=== PATIENT | female | born 1960 | race Caucasian/White ===

== ENCOUNTER → 2016-08-01 | Outpatient (CLI) | payer BC ==
[~2016-08-01] VITALS: Ht 174 cm; Wt 95.0 kg
[~2016-08-01] MED LIST: BELVIQ; CARDI-OMEGA1000 MG PO; PHENTERMINE15 MG; ZOLOFT; ZOLOFT 50MG50 MG PO
[2016-08-01 14:10] VITALS: BP 116/50; PULSE 76
[2016-08-01 14:36] VITALS: BP 116/50; PULSE 76
== END ==
LOC: LIGHT 06-06 12:00
DX: E78.4 Other hyperlipidemia (principal); M15.8 Other polyosteoarthritis; E66.09 Other obesity due to excess calories; Z68.31 Body mass index [BMI] 31.0-31.9, adult

== ENCOUNTER → 2017-07-09 | Outpatient (CLI) | payer BC | LOC: MC.RAD 09:54 | DX: Z12.31 Encounter for screening mammogram for malignant neoplasm of breast (principal) ==

== ENCOUNTER 2018-09-23 07:10 | Outpatient (CLI) | payer BC ==
[~2018-09-23] VITALS: Ht 174 cm; Wt 90.1 kg
[~2018-09-23 07:10] MED LIST changes: +KRILL OIL 3001 EACH PO; +LEXAPRO 10MG10 MG PO; +MAGNESIUM CITR100 MG PO; +PRESERVISION1 SGL PO; +PROBIOTIC FORMU1 CAP PO; +XANAX 0.5MG0.5 MG PO
[2018-09-23 07:26] VITALS: BP 124/71; PULSE 66
[2018-09-23 08:15] VITALS: BP 119/76; PULSE 66; PULSE 96
--- NOTE | 2018-09-23 08:15 | NUR ---
PT TO ROOM 10 POST LP. VSS AND [id number]. BAND AID TO BACK C.D.I. RESTING COMFORTABLY WITH A PAIN LEVEL OF 0/10 PER PT. WILL CONTINUE TO MONITOR.
[2018-09-23 08:30] VITALS: BP 110/76; PULSE 65
[2018-09-23 08:45] VITALS: BP 115/88; PULSE 65
[2018-09-23 08:54] LABS: GLUCOSE,CSF 58 mg/dL (40-70); TOTAL PROTEIN,CSF 41 mg/dL (15-45)
[2018-09-23 09:00] VITALS: BP 102/66; PULSE 63
[2018-09-23 09:15] VITALS: BP 98/64; PULSE 64
--- NOTE | 2018-09-23 09:30 | NUR ---
DISCHARGE INSTRUCTIONS REVIEWED AND SIGNED POST LP. PT DENIES ANY DISCOMFORT AT THIS TIME AND HAS TOLERATED FLUIDS PO WITHOUT ISSUE. PT WHEELED OUT SAFELY VIA WHEELCHAIR WHERE [employer] SOFTWARE FACILITATOR WAS WAITING TO PICK HER UP.
[2018-09-23 10:20] LABS: CSF APPEARANCE CLEAR; CSF COLOR COLORLESS; CSF MONONUCLEAR 100 % (70-100); CSF POLYMORPHONUCLEAR 0 % (0-6); CSF RBC 12 /mm3 (0-0)
[2018-09-26 13:29] LABS: CSF IGG/ALBUMIN 0.08 (<=0.21); CSF,IGG 1.6 mg/dL (<=8.1)
[2018-09-26 13:35] LABS: CSF-IGG INDEX 0.42 (<=0.85); IGG/ALBUMIN SERUM 0.19 (<=0.40)
== END 2018-09-23 09:30 | disposition home or self-care (01) ==
LOC: COL.RAD 07:10
PROVIDERS: Psychiatry & Neurology Neurology
DX: G37.9 Demyelinating disease of central nervous system, unspecified (principal)

== ENCOUNTER → 2019-05-03 | Outpatient (CLI) | payer BC | LOC: MC.RAD 03-25 14:15 | DX: Z12.31 Encounter for screening mammogram for malignant neoplasm of breast (principal); Z98.82 Breast implant status ==

== ENCOUNTER → 2021-01-03 | Outpatient (CLI) | payer BC | LOC: MC.RAD 09:30 | DX: Z12.31 Encounter for screening mammogram for malignant neoplasm of breast (principal) ==

== ENCOUNTER 2023-03-03 09:30 | Outpatient (RCR) | payer BC | END 2023-03-06 | disposition home or self-care (01) | LOC: MKS.ESL.PT | DX: G62.9 Polyneuropathy, unspecified (principal) ==

== ENCOUNTER 2023-03-03 09:30 | Outpatient (RCR) | payer SELFPAY | END 2023-03-06 | disposition home or self-care (01) | LOC: MKS.ESL.PT | DX: G62.9 Polyneuropathy, unspecified (principal) ==

== ENCOUNTER 2023-08-25 08:37 | Outpatient (RCR) | payer BC | END 2023-08-25 08:38 | LOC: MKS.ESL.PT 08:37 | DX: G62.9 Polyneuropathy, unspecified (principal) ==